=== PATIENT | female | born 1930 | race Hispanic/Latino ===

== ENCOUNTER 2017-10-23 02:13 | Emergency (ER) | payer MEDICARE, OTHER ==
[~2017-10-23] VITALS: Ht 152.4 cm; Wt 61.3 kg
[~2017-10-23 02:13] MED LIST: ACETAZOLAMID250 MG OR; ALPHAGAN P0.1 % OU; APRACLONIDINE 0.5% OP; ASPIRIN CHEWABL81 MG PO; ASPIRIN325 MG PO; ASPIRIN81 MG PO; ATIVAN1 MG PO; ATORVASTATIN CA10 MG PO; BACTRIM DS1 TAB PO; BUMETANIDE1 MG PO; COMBIGAN0.2 MG/0.5 OP; COMBIGAN0.2 MG/0.5 OU; CRANBERY450 MG PO; DONEPEZIL5 MG PO; EC ASPIRIN325 MG PO; FOLIC PO; GLUCOVANC1 PO; GLYB/METFO5 MG/500 M PO; GLYBURIDE5 MG PO; HYDROCHLOROT12.5 MG OR; ISOSORB MONO30 MG PO; JANUVIA50 MG PO; LEVEMIR SC; LISINOPRIL20 MG PO; LORTAB 5 OR; MELATONIN3 MG PO; METFORMIN500 MG PO; NAPROXEN DR500 MG OR; NITROFURANTN100 MG PO; NORVASC10 MG PO; NOVOLOG100 IU/1 M SC; PANTOPRAZOLE SO40 MG PO; PAROXETINE10 MG PO; PAXIL PO; PAXIL10 MG OR; PLAVIX75 MG PO; PNEUMOVAX 23 IM; QUINAPRIL20 MG OR; REQUIP0.25 MG OR; REQUIP0.5 MG OR; REQUIP2 MG PO; REQUIP4 MG PO; ROPINIROLE2 MG PO; SINEMET 25/1001 TA1 PO; TRIAZOLAM0.25 MG OR; VIT B-COMPLX100 MG PO; VITAMIN B PO; VITAMIN C500 M6 PO; XALATAN 0.005%2.5 ML OP; XALATAN 0.005%2.5 ML OU; ZESTORETIC 20/11 TAB OR
[2017-10-23] MEDS ORDERED: LISINOPRIL5 MG PO (02:31)
[2017-10-23] MEDS ORDERED: GERI-LANTA PO (02:33)
[2017-10-23 02:58] LABS: HEMATOCRIT 45.5 % (37.0-47.0); HEMOGLOBIN 15.4 g/dl (12.0-16.0); IMMATURE GRANULOCYTES 0.4 % (0.0-1.0); MEAN CELL VOLUME 91.2 fL CALC (80.0-100.0); MEAN CORPUSCULAR HGB 30.9 pG CALC (26.0-32.0); MEAN CORPUSCULAR HGB CONC 33.8 g/L CALC (32.0-36.0); NEUT# 12.35 thou/uL (2.00-7.15); RED BLOOD COUNT 4.99 mill/uL (4.20-5.60); RED CELL DISTRI WIDTH 12.4 % (11.5-15.5)
[2017-10-23 03:15] LABS: ALBUMIN 3.8 g/dL (3.2-5.0); ALKALINE PHOSPHATASE 260 u/l (38-126); AMYLASE < 30 u/l (30-110); ANION GAP 20 (6-22 (CALC)); BILIRUBIN, TOTAL 1.6 mg/dL (0.0-1.4); BUN 21 mg/dL (8-23); BUN/CREATININE RATIO 20 (12-20 (CALC)); CALCIUM 9.5 mg/dL (8.4-10.2); CARBON DIOXIDE 28 mmol/l (22-30); CHLORIDE 93 mmol/l (95-108); CREATININE 1.1 mg/dL (0.5-1.0); GFR 47 ML/MIN (>=60 (CALC)); GFR FOR AFR.AMER. 57 ML/MIN (>=60 (CALC)); LIPASE 28 u/l (23-300); SGOT/AST 18 u/l (9-36); SGPT/ALT 13 u/l (11-66); SODIUM 135 mmol/l (137-146); TOTAL PROTEIN 6.6 g/dL (6.3-8.2)
[2017-10-23 03:16] LABS: ACT PARTIAL THROMBO TIME 23.4 SECONDS (20.0-32.5)
[2017-10-23 03:27] LABS: MYOGLOBIN 69 ng/mL (0 - 62)
[2017-10-23 03:31] LABS: GLUCOSE 607 mg/dL (82-115)
[2017-10-23 04:47] LABS: URINE BILIRUBIN - DIPSTICK NEGATIVE (NEGATIVE); URINE BLOOD DIPSTICK LARGE (NEGATIVE); URINE COLOR YELLOW; URINE GLUCOSE - DIPSTICK >=1000 mg/dL (NEGATIVE); URINE KETONE TRACE mg/dL (NEGATIVE); URINE LEUK ESTERASE TRACE (NEGATIVE); URINE PH 5.5 (4.5-8.0); URINE PROTEIN - DIPSTICK 30 mg/dL (NEG-TRACE); URINE UROBILINOGEN - DIPSTICK 0.2 E.U./dL (0.2)
[2017-10-23 04:54] LABS: URINE CLARITY CLEAR; URINE NITRITE - DIPSTICK POSITIVE (Negative)
[2017-10-23 04:56] LABS: URINE BACTERIA MANY hpf; URINE SQUAMOUS EPITHELIAL CELL MODERATE EPI/hpf (0-FEW); URINE WBC 0-2 WBC/hpf (0-5)
[2017-10-23 04:57] LABS: URINE AMORPH SEDIMENT FEW hpf (NONE-FEW)
[2017-10-23 06:49] VITALS: BP 140/64
== END 2017-10-23 06:56 | disposition short-term general hospital (02) ==
LOC: ED 02:13
PROVIDERS: Emergency Medicine
DX: K62.5 Hemorrhage of anus and rectum (principal); E11.65 Type 2 diabetes mellitus with hyperglycemia; I10 Essential (primary) hypertension; G31.83 Neurocognitive disorder with Lewy bodies; F02.80 Dementia in other diseases classified elsewhere, unspecified severity, without behavioral disturbance, psychotic disturbance, mood disturbance, and anxiety; N39.0 Urinary tract infection, site not specified; B96.20 Unspecified Escherichia coli [E. coli] as the cause of diseases classified elsewhere
CPT/HCPCS: J1956; S0164

== ENCOUNTER 2018-06-13 12:23 | Emergency (ER) | payer MEDICARE, OTHER ==
[~2018-06-13] VITALS: Ht 152.4 cm; Wt 70.5 kg
[~2018-06-13 12:23] MED LIST changes: +GERI-LANTA PO; +LISINOPRIL5 MG PO
[2018-06-13 13:33] LABS: BASO% 0 % (0-3); EOS% 0 % (0-8); HEMATOCRIT 43.6 % (37.0-47.0); IMMATURE GRANULOCYTES 2.7 % (0.0-5.0); LYMPH% 4 % (15-41); MEAN CELL VOLUME 92.6 fL CALC (80.0-100.0); MEAN CORPUSCULAR HGB 31.8 pG CALC (26.0-32.0); MEAN CORPUSCULAR HGB CONC 34.4 g/L CALC (32.0-36.0); MONO% 1 % (2-13); NEUT# 28.33 thou/uL (2.00-7.15); NEUT% 92 % (42-76); RED BLOOD COUNT 4.71 mill/uL (4.20-5.60); RED CELL DISTRI WIDTH 13.6 % (11.5-15.5)
[2018-06-13 13:35] LABS: MANUAL DIFFERENTIAL YES; PLATELET COUNT 299 thou/uL (130-400)
[2018-06-13 13:50] LABS: ALKALINE PHOSPHATASE 306 u/l (38-126); BILIRUBIN, TOTAL 2.6 mg/dL (0.0-1.4); BUN 26 mg/dL (8-23); BUN/CREATININE RATIO 28 (12-20 (CALC)); CARBON DIOXIDE 22 mmol/l (22-30); CHLORIDE 98 mmol/l (95-108); CREATININE 0.9 mg/dL (0.5-1.0); GFR 59 ML/MIN (>=60 (CALC)); GFR FOR AFR.AMER. > 60 ML/MIN (>=60 (CALC)); SGPT/ALT 91 u/l (11-66); SODIUM 139 mmol/l (137-146); TOTAL PROTEIN 7.8 g/dL (6.3-8.2)
[2018-06-13 13:51] LABS: BAND 7 % (0-8)
[2018-06-13 13:58] LABS: ANION GAP 23 (6-22 (CALC)); POTASSIUM 3.9 mmol/l (3.5-5.1); SGOT/AST 215 u/l (9-36)
[2018-06-13 15:01] LABS: URINE BILIRUBIN - DIPSTICK NEGATIVE (NEGATIVE); URINE BLOOD DIPSTICK TRACE-INTACT (NEGATIVE); URINE COLOR YELLOW; URINE GLUCOSE - DIPSTICK >=1000 mg/dL (NEGATIVE); URINE KETONE NEGATIVE (NEGATIVE); URINE NITRITE - DIPSTICK NEGATIVE (Negative); URINE PROTEIN - DIPSTICK TRACE mg/dL (NEG-TRACE); URINE SPECIFIC GRAVITY 1.025; URINE UROBILINOGEN - DIPSTICK 0.2 E.U./dL (0.2)
[2018-06-13 15:26] LABS: AMYLASE 48 u/l (30-110); LIPASE 11 u/l (23-300)
[2018-06-13 15:26] LABS: URINE CLARITY CLEAR; URINE LEUK ESTERASE SMALL (NEGATIVE)
[2018-06-13] MEDS ORDERED: LEVEMIR100 UNIT/M SC (15:57)
[2018-06-13] MEDS ORDERED: METFORMIN500 M2 PO (15:58)
[2018-06-13] MEDS ORDERED: MULTI VIT PO (15:59)
[2018-06-13 16:00] LABS: URINE BACTERIA MANY hpf; URINE SQUAMOUS EPITHELIAL CELL FEW EPI/hpf (0-FEW)
[2018-06-13] MEDS ORDERED: COLACE100 MG PO (16:00)
[2018-06-13] MEDS ORDERED: COMBIGAN0.2 MG/0.5 OU (16:01)
[2018-06-13 22:10] VITALS: BP 119/68
== END 2018-06-13 22:26 ==
LOC: ED 12:23
PROVIDERS: Emergency Medicine
DX: A41.9 Sepsis, unspecified organism (principal); K81.0 Acute cholecystitis; N39.0 Urinary tract infection, site not specified; E11.65 Type 2 diabetes mellitus with hyperglycemia; J44.9 Chronic obstructive pulmonary disease, unspecified; K21.9 Gastro-esophageal reflux disease without esophagitis; F32.9 Major depressive disorder, single episode, unspecified; G20 Parkinson's disease; F02.80 Dementia in other diseases classified elsewhere, unspecified severity, without behavioral disturbance, psychotic disturbance, mood disturbance, and anxiety; B96.20 Unspecified Escherichia coli [E. coli] as the cause of diseases classified elsewhere; Z16.12 Extended spectrum beta lactamase (ESBL) resistance; R94.31 Abnormal electrocardiogram [ECG] [EKG]